=== PATIENT | female | born 1985 | race Caucasian/White ===

== ENCOUNTER 2020-01-28 18:07 | Emergency (ER) | payer OTHER, SELFPAY ==
--- NOTE | ~2020-01-28 | XR_ITS ---
EXAMINATION: XR foot LT 2V DATE: 01/28/2020 18:40 INDICATION: Left foot injury. TECHNIQUE: 2 views of left foot were obtained. COMPARISON: None. FINDINGS: Bone alignment is normal. No fracture. There is mild osteoarthritis of first metatarsophala ngeal joint and some of the interphalangeal joints and midfoot joints. There are enthesophytes at the posterior and plantar aspects of calcaneal tuberosity. IMPRESSION: 1. Mild polyarticular osteoarthritis. Reviewed, dictated and finalized at location A. NG SEWER
[2020-01-28 18:10] VITALS: BP 141/81; PULSE 92; RESP 14; TEMP 36.6; O2SAT 98
--- NOTE | 2020-01-28 18:45 | ED.LOWEXIN ---
HPI - Extremity Injury (Lower) General Chief Complaint: Extremity Injury, Lower Stated Complaint: foot pain Source: patient Mode of arrival: ambulatory Limitations: no limitations History of Present Illness HPI Narrative: This is a 34-year-old female presents after she dropped safe on her left foot mainly on the left large toe causing some swelling and bruising with some decreased range of motion secondary to swelling, happen a couple days ago when she was trying to put up [place] ornaments and decorations. Currently there is some mild tingling with no numbness has good range of motion although limited secondary to swelling. Did try [id number] ibuprofen with ice as well with some moderate relief. complaint: foot injury Injury: Left: foot Type of Injury: blunt Place: home Severity: mild Severity scale (1-10): 4 Relieving factors: NSAID Exacerbating factors: weight bearing and movement Context: direct blow Associated symptoms: swelling and tingling Related Data Home Medications Medication Instructions Recorded Confirmed levothyroxine 112 mcg PO DAILY 01/28/20 01/28/20 loratadine [Claritin] 10 mg PO DAILY 01/28/20 01/28/20 omeprazole 20 mg PO DAILY 01/28/20 01/28/20 trazodone 50 mg PO HS 01/28/20 01/28/20 Allergies Allergy/AdvReac Type Severity Reaction Status Date / Time codeine AdvReac Nausea and Verified 01/28/20 18:23 Vomiting Review of Systems Review of Systems: All systems reviewed & are unremarkable except as noted in HPI and below PMFSH Past Medical History Medical History Patient denies medical problems Exam Narrative: Exam Narrative: patient declined any pain medication, reassessment patient is currently having pain about a 3 or 4/10 and reviewed x-ray with patient and mention there were no acute fractures. Const: General: cooperative, healthy appearing and comfortable HENMT: Head: normal to inspection Eyes: General: appearance normal, both eyes and all related structures Eyelids: eyelids normal Conjunctivae: conjunctivae normal Sclera: sclerae normal Neck: Neck: normal visual inspection, full ROM and no lymphadenopathy Chest: Chest palpation & inspection: normal inspection of the chest and normal palpation of entire chest wall Resp: Effort & Inspection: normal respiratory effort and able to speak in complete sentences Cardio: Jugular venous distension: no JVD Palpation: normal PMI Rate: regular rate Rhythm: regular rhythm Heart sounds: S1 normal heart sound present and S2 normal heart sound present GI: Inspection: normal to inspection Skin: Other: Bruising anterior left large toe Course Vital Signs Vital signs: Vital Signs Temperature 36.6 C 01/28/20 18:10 Pulse Rate 92 01/28/20 18:10 Respiratory Rate 14 01/28/20 18:10 Blood Pressure 141/81 H 01/28/20 18:10 Pulse Oximetry 98 01/28/20 18:10 Temperature 36.6 C 01/28/20 18:10 Pulse Rate 92 01/28/20 18:10 Respiratory Rate 14 01/28/20 18:10 Blood Pressure 141/81 H 01/28/20 18:10 Pulse Oximetry 98 01/28/20 18:10 Critical Care Time Critical Care Time Critical Care Time: No Discharge Plan Discharge Clinical Impression: Foot sprain Qualifiers: Encounter type: initial encounter Laterality: left Qualified Code(s): S93.602A - Unspecified sprain of left foot, initial encounter Patient Disposition: Home, Self-Care Condition: Stable Instructions: Antibiotic Form, Foot Sprain (ED) Additional Instructions: can use [id number] ibuprofen, and ice to affected area, if symptoms persist or worsen should follow-up with primary care physician for further evaluation and treatment. Prescriptions: No Action trazodone 50 mg Tablet 50 mg PO HS RF: 0 loratadine [Claritin] 10 mg Tablet 10 mg PO DAILY RF: 0 levothyroxine 112 mcg Tablet 112 mcg PO DAILY RF: 0 omeprazole 20 mg Tablet,Delayed Release (D
[2020-01-28 18:50] VITALS: RESP 16; O2SAT 99
== END 2020-01-28 18:51 | disposition home or self-care (01) ==
PROVIDERS: Emergency Provider Emergency Medicine; PCP Internal Medicine
DX: S93.602A Unspecified sprain of left foot, initial encounter (principal); W22.8XXA Striking against or struck by other objects, initial encounter
CPT/HCPCS: 73620; 99282; 99283

== ENCOUNTER 2021-06-08 07:37 | Outpatient (CLI) | payer OTHER, SELFPAY ==
[2021-06-08 19:00] LABS: Hematocrit 41.3 % (37.0-47.0); Hemoglobin 13.2 g/dL (12.0-15.0); Mean Corpuscular Hemoglobin 30.1 pg (26-34); Mean Corpuscular Volume 94.3 fl (80-100); Mean Platelet Volume 10.4 fl (7.4-10.4); Platelet Count Result 275 k/mm3 (150-375); Red Blood Count 4.38 M/mm3 (4.2-5.4); Red Cell Distribution Width 12.3 % (11.5-14.5); White Blood Count 7.5 K/mm3 (4.5-10.0)
[2021-06-08 19:08] LABS: Alanine Aminotransferase 21 U/L (4-35); Albumin Level 4.5 g/dL (3.5-5.1); Alkaline Phosphatase 57 U/L (38-126); Anion Gap 8 mmol/L (8-16); Aspartate Amino Transferase 25 U/L (14-36); Bilirubin,Total 0.2 mg/dL (0.2-1.3); Blood Urea Nitrogen 16 mg/dL (7-17); Calcium 9.3 mg/dL (8.4-10.2); Carbon Dioxide 23 mmol/L (22-30); Chloride 105 mmol/L (98-107); Cholesterol 149 mg/dL (0-200); Estimated Glomerular Filt Rate > 60; Glucose 104 mg/dL (65-110); HDL Direct 57 mg/dL; Potassium 4.3 mmol/L (3.4-5.0); Sodium 136 mmol/L (137-145); Triglycerides 111 mg/dL (<150)
[2021-06-08 19:19] LABS: LDL Cholesterol Direct 67 mg/dL
[2021-06-08 21:50] LABS: Free T4 Free Thyroxine Reflex 1.28 ng/dL (0.78-2.19)
== END 2021-06-08 07:38 | disposition home or self-care (01) ==
LOC: ANHBWCLAB 07:38
PROVIDERS: PCP Family Medicine; Visit Provider Family Medicine
DX: Z00.00 Encounter for general adult medical examination without abnormal findings (principal)
CPT/HCPCS: 36415; 80053; 80061; 84439; 84443; 84480; 85027

== ENCOUNTER 2021-07-16 11:09 | Outpatient (CLI) | payer OTHER, SELFPAY | END 2021-07-16 11:10 | disposition home or self-care (01) | PROVIDERS: PCP Family Medicine; Visit Provider Family Medicine | DX: E03.9 Hypothyroidism, unspecified (principal) | CPT/HCPCS: 36415; 84443 ==

== ENCOUNTER 2022-03-29 08:54 | Outpatient (CLI) | payer OTHER, SELFPAY ==
[2022-03-29 22:25] LABS: Free T4 Free Thyroxine Reflex 1.56 ng/dL (0.78-2.19)
[2022-03-29 23:53] LABS: Total Triiodothyronine (T3) 1.85 NG/ML (0.97-1.69)
== END 2022-03-29 08:55 | disposition home or self-care (01) ==
LOC: ANHBWCLAB 08:55
PROVIDERS: PCP Family Medicine; Visit Provider Family Medicine
DX: E03.9 Hypothyroidism, unspecified (principal); G43.909 Migraine, unspecified, not intractable, without status migrainosus; G44.209 Tension-type headache, unspecified, not intractable; J30.9 Allergic rhinitis, unspecified
CPT/HCPCS: 36415; 84439; 84443; 84480

== ENCOUNTER 2022-06-04 07:35 | Outpatient (CLI) | payer OTHER, SELFPAY ==
[2022-06-04 19:44] LABS: Hemoglobin 12.9 g/dL (12.0-15.0); Mean Corpuscular HGB Conc 31.5 g/dl (32-36); Mean Corpuscular Hemoglobin 30.3 pg (26-34); Mean Corpuscular Volume 96.2 fl (80-100); Mean Platelet Volume 10.2 fl (7.4-10.4); Platelet Count Result 261 k/mm3 (150-375); Red Blood Count 4.26 M/mm3 (4.2-5.4); Red Cell Distribution Width 12.5 % (11.5-14.5); White Blood Count 6.3 K/mm3 (4.5-10.0)
[2022-06-04 21:10] LABS: Alanine Aminotransferase 27 U/L (6-35); Albumin Level 4.3 g/dL (3.5-5.1); Alkaline Phosphatase 56 U/L (38-126); Anion Gap 5 mmol/L (8-16); Aspartate Amino Transferase 65 U/L (14-36); Bilirubin,Total 0.4 mg/dL (0.2-1.3); Blood Urea Nitrogen 15 mg/dL (7-17); Calcium 8.9 mg/dL (8.4-10.2); Carbon Dioxide 28 mmol/L (22-30); Chloride 104 mmol/L (98-107); Cholesterol 154 mg/dL (0-200); Estimated Glomerular Filt Rate > 60; Glucose 101 mg/dL (65-110); HDL Direct 55 mg/dL; Potassium 4.7 mmol/L (3.4-5.0); Sodium 137 mmol/L (137-145); Triglycerides 119 mg/dL (<150)
[2022-06-04 21:21] LABS: LDL Cholesterol Direct 70 mg/dL
== END 2022-06-04 07:36 | disposition home or self-care (01) ==
LOC: ANHBWCLAB 07:36
PROVIDERS: PCP Family Medicine; Visit Provider Family Medicine
DX: E03.9 Hypothyroidism, unspecified (principal); G43.909 Migraine, unspecified, not intractable, without status migrainosus; G44.209 Tension-type headache, unspecified, not intractable; G47.00 Insomnia, unspecified; Z00.00 Encounter for general adult medical examination without abnormal findings; K21.9 Gastro-esophageal reflux disease without esophagitis; T78.40XA Allergy, unspecified, initial encounter
CPT/HCPCS: 36415; 80053; 80061; 84443; 85027

== ENCOUNTER 2023-03-06 15:33 | Outpatient (CLI) | payer OTHER, SELFPAY ==
[2023-03-06 21:57] LABS: Free T4 Free Thyroxine 1.33 ng/mL (0.78-2.19)
[2023-03-09 04:04] LABS: Triiodothyronine T3 Free 2.6 pg/mL (2.3-4.2)
== END 2023-03-06 15:34 | disposition home or self-care (01) ==
LOC: ANHBWCLAB 15:35
PROVIDERS: PCP Nurse Practitioner Adult Health; Visit Provider Nurse Practitioner Adult Health
DX: E03.9 Hypothyroidism, unspecified (principal)
CPT/HCPCS: 36415; 84439; 84443; 84481

== ENCOUNTER 2024-06-03 07:29 | Outpatient (CLI) | payer BC, SELFPAY ==
--- OUTSIDE RECORDS SUMMARY | 2024-06-03 07:32 | XMS_ITS | Clinical Summary ---
Author Organization [facility] Healthcare Address [address] [place] [address] Care Team Providers Care Cash Applications Coordinator Name Role Phone Fanny Renae MD Primary Care Provider Allergies Active Allergy Reactions Criticality Noted Date Comments Codeine Unknown 07/20/2018 Oregano Unknown 03/20/2020 Medications loratadine (CLARITIN) 10 mg tablet 10 mg daily Active omeprazole (PriLOSEC) 20 mg capsuleIndicatio ns:Gastroesophag eal reflux disease without esophagitis Take 1 capsule (20 mg total) by mouth 2 (two) times a day 180 capsule 1 03/20/2020 Active traZODone (DESYREL) 50 mg tabletIndication s:Psychophysiolo gical insomnia TAKE ONE TABLET BY MOUTH AT BEDTIME 90 tablet 2 05/03/2021 Active levothyroxine (SYNTHROID) 125 mcg tablet TAKE ONE TABLET BY MOUTH ONCE DAILY 90 tablet 1 07/18/2021 Active aspirin 81 MG oral suspension 08/01/2020 Act grecia Active Problems Problem Noted Date Diagnosed Date Psychophysiological insomnia 01/16/2018 Acquired hypothyroidism 01/16/2018 Allergic rhinitis 01/16/2018 Obesity (BMI 30-39.9) 01/16/2018 Chronic fatigue 06/26/2016 Immunizations Immunization Administration Dates Next Due Influenza, Quadrivalent, Split, Intramuscular Influenza, Trivalent, IM (MDV) 12/01/2017 Influenza, Trivalent, Preservative Free, Intramu scular 01/31/2016 Influenza, Unspecified 12/06/2019,12/10/2018 Tdap 12/01/2013,12/05/2012 Medical History Medical History Date Comments Headache PCOS (polycystic ovarian syndrome) Thyroid disease Family History Medical History Relation Name Comments Hyperlipidemia Father Hypertension Father Relation Name Status Comments Brother Alive Father Alive Mother Alive Sister 1 Alive Sister 2 Alive Social History Tobacco Use Types Packs/Day Years Used Date Smoking Tobacco: Never Smokeless Tobacco: Never Alcohol Use Standard Drinks/Week Comments Not Currently 0 (1 standard drink = 0.6 oz pur e alcohol) PHQ-2 Answer Date Recorded PHQ-2 Total Score (If total score is 3 or more points, staff should administer the PHQ-9) 0 03/20/2020 Personal Safety Answer Date Recorded Getting School Help Needed Not on file 05/17 Comments Unknown Sex and Gender Information Value Date Recorded Sex Assigned at Not on file Legal Sex Female 3:48 PM FACILITY [employer]NAGER [employer]ISTOLOGY Gender Identity Female 03/15/2020 12:52 PM FACILITY MANAGER HISTOLOGY Sexual Orientation Straight 03/15/2020 12 :52 PM FACILITY MANAGER HISTOLOGY Obstetrics History Last Filed Vital Signs Vital Sign Reading Time Taken Comments Blood Pressure 108/76 09/18/2021 1:37 PM CDT Pulse 110 09/18/2021 1:37 PM CDT Temperature 37.9 C (100.3 F) 09/18/2021 1:02 PM CDT Respiratory Rate 18 09/18/2021 1:02 PM CDT Oxygen Saturation 97% 09/18/2021 1:37 PM CDT Inhaled Oxygen Concentration - - Weight 86.5 kg (190 lb 9.6 oz) 09/18/2021 1:02 P M CDT Height 154.9 cm (5' 1 ) 09/18/2021 1:02 PM CDT Body Mass Index 36.01 09/18/2021 1:02 PM CDT Plan of Treatment Health Maintenance Due Date Last Done Comments Breast Cancer Screening-Mammogram 1983 Hepatitis C Screening 1983 Hepatitis B Screening 10/21/2001 Cervical Cancer Screening 06/02/2019 06/01/2018 Depression Screening 03/20/2021 03/20/2020, 03/17/19 20 Regular Well Visit/Exam 18-64 03/20/2021 03/20/2020, 03/17/2019 DTaP/Tdap/Td Vaccine (3 - Td or Tdap) 12/02/2023 12/01/2013, 12/05/2012 Influenza Vaccine (Season Ended) 2024 12/06/2019, 12/10/2018, 12/10/2018, Additional history exists HPV Vaccines Aged Out No longer eligi ble based on patient's age to complete this topic Pneumococcal vaccine <65 Aged Out No longer eligible based on patient's age to complete this topic Varicella Vaccines Discontinued Procedures Procedure Name Priority Date/Time Associated Diagnosis Comments PAP SMEAR WITH HPV Routine 06/01/2018 from Last 3 Months or Most Recently Relevant to Health Maintenance Results * PAP SMEAR WITH HPV (06/01/2018) HM Pap smear Normal us Historical Provider HEALTH MAINTENANCE Final Result from Last 3 Months or Most Recently Relevant to Health Maintenance Insurance [facility] Address: [address] [address] Care Teams Cash Applications Coordinator Relationship Specialty Start Date End Date Fanny Renae MD PCP - General Internal Medicine 03/08/19
--- OUTSIDE RECORDS SUMMARY | 2024-06-03 07:32 | XMS_ITS | Data Portability ---
Author Organization [facility] [employer] [facility] Address [address] [place] [address] Assessment Encounter Date Assessment Date Assessment LastModified by Organization Details LastModified Time 04/22/2022 04/22/2022 36 y.o. here for annual exam. - Pap / HPV cotesting done today , discussed natural course of HPV infection, ASCCP guidelines. Plan to repeat cotesting in 5 years - Contraception: declined, partner s/p vasectomy. - Routine labs done with PCP - Mammo at age 38, no increased risk - Depression screen NEG - BMI counseling, diet and exercise reviewed - RTO for annual or PRN [email or web address] Not available 04/23/2022 00:11:03 05/28/2022 05/28/2022 results reviewed. Based on ASCCP guidelines, plan repeat cotesting in 1 and 2 years. If both normal, could return to routine screening. Need for surveillance and adherence to routine screening explained. Patient voiced understanding. Return 04/2023 for cotesting. [email or web address] Not available 08/08/2022 16:58:26 Plan of Treatment Reminders Order Date Submit Date Provider Last Modified By Organization Details Last Modified Time Details Appointments None jennifer bradshaw Lab biopsy, tissue 2022 023 [id number] [facility], [address] [place], [address], 3 17:41:01 biopsy, tissue 2022 023 FÉLIX [facility], [address] [place], [address], 3 16:53:25 biopsy, tissue 2022 023 [email or web address] [facility], [address] [place], [address], 3 17:41:01 pregnan cy test, urine 2022 023 [email or web address] [facility], [address] [place], [address], 3 18:06:02 biopsy, tissue 2022 023 [id number] [facility], [address] [place], [address], 3 17:41:01 biopsy, tissue 2022 023 [email or web address] [facility], [address] [place], [address], 3 17:41:01 pap, LB 2022 023 [employer] [facility], [address] [place], [address], 3 12:48:49 HPV E6+E7 mRNA, qualita tive PCR, cervix 2022 023 [facility], [address] [place] [address], [address], 3 15:30:09 Referral None recorde d. Procedures colposc opy with biopsy and endocer vical curetta ge (PROC) 2022 023 Not available 3 13:03:04 biopsy, endomet rium (PROC) 2022 023 [email or web address] Not available 3 12:13:29 Surgeries None recorde d. Imaging None recorde d. Medication Orders None recorde d. Patient TargetsNo targets recorded. Patient Instructions Encounter Date Encounter Id Patient Instructions Last Modified By Organization Details Last Modified Time 04/22/2022 [id number] Patient Health Questionnaire-9* [email or web address] Not available 04/22/2022 12:34:31 body mass index: care instructions [email or web address] Not available 04/23/2022 00:11:04 learning about depression screening [email or web address] Not available 04/23/2022 00:11:04 A healthy lifestyle: care instructions [email or web address] Not available 04/23/2022 00:11:04 Reason for Referral None Reported. Results Created Date Observation Date Name Description Value Unit Range Abnormal Flag Note LastModifiedBy Organization Detail LastModifiedTime 05/17/1905/16/2022 TISSU E PATHO LOGY clinical information Lesio n Not Available [address] [place], [address], 05/16/2022 16:53:25 05/17/19 23 05/16/2022 TISSU E PATHO LOGY pathologist Jaime Morris M.D., Board Certi fied in Anato brijesh Patho logy and Clini lola Patho logy. Phone (elec troni c signa ture) Not Available [address] [place], [address], 05/16/2022 16:53:25 05/17/19 23 05/16/2022 TISSU E PATHO LOGY A source Cervi x, 3 o'alek ck, biops y Not Available [facility] [address] [address] [place], [address], 05/16/2022 16:53:25 05/17/19 23 05/16/2022 TISSU E PATHO LOGY A gross description Speci men is recei caity in forma alex, label ed with multi ple patie nt ident ifier s and consi sts of one fragm ent of tissu e measu ring 0.7 x 0.4 x 0.2 cm, irreg ular in shape and yello w-whi te in color . The speci men is entir jovan submi tted in one casse tte. The speci men site is taken from the conta iner. Gross exam( s) perfo rmed at: [facility] [place] [address] [facility] [address], [place] [address] Labor atory Direc tor: KEYANA Diggs MD Not Available [facility] [address] [address] [place], [address], 05/16/2022 16:53:25 05/17/19 23 05/16/2022 TISSU E PATHO LOGY A diagnosis Acute and chron ic infla mmati on with tubal metap lasia , see comme nt. Trans forma tion zone compo nent prese nt. No dyspl jcarlos or malig pushpa . Not Available [facility] [address] [address] [place], [address], 05/16/2022 16:53:25 05/17/19 23 05/16/2022 TISSU E PATHO LOGY A comment The endoc ervic al epith elial cells that show the tubal metap lasia in this speci men may accou nt for the atypi lola gland ular cells seen in the recen t Pap smear . Not Available [facility] [address] [address], [place], [address], 05/16/2022 16:53:25 05/17/19 23 05/16/2022 TISSU E PATHO LOGY B source Cervi x, 7 o'alek ck, biops y Not Available [facility] [address] [address] , [place], [address], 05/16/2022 16:53:25 05/17/19 23 05/16/2022 TISSU E PATHO LOGY B gross description Speci men is recei caity in forma alex, label ed with multi ple patie nt ident ifier s and consi sts of one fragm ent of tissu e measu ring 0.7 x 0.2 x 0.2 cm, irreg ular in shape and yello w-whi te in color . The speci men is entir jovan submi tted in one casse tte. [facility]. 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 Trans forma tion zone compo nent prese nt. Tubal metap lasia also noted , see comme nt. Not Available [address] [address] [place], [address], 05/16/2022 16:53:25 05/17/19 23 05/16/2022 TISSU E PATHO LOGY B comment The endoc ervic al epith elial cells that show the tubal metap lasia in this speci men may accou nt for the atypi lola gland ular cells seen in the recen t Pap smear . Not Available [facility] [address] [address] [place], [address], 05/16/2022 16:53:25 05/17/19 23 05/16/2022 TISSU E PATHO LOGY C source Cervi x, 11 o'alek ck, biops y Not Available [facility] [address] [address] [place], [address], 05/16/2022 16:53:25 05/17/19 23 05/16/2022 TISSU E PATHO LOGY C gross description Speci men is recei caity in forma alex, label ed with multi ple patie nt ident ifier s and consi sts of one fragm ent of tissu e measu ring 0.4 x 0.2 x 0.2 cm, irreg ular in shape and yello w-whi te in color . The speci men is entir jovan submi tted in one casse tte. The speci men site is taken from the [facility]. 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 Trans forma tion zone compo nent prese nt. Not Available [facility] [address] [address] [place], [address], 05/16/2022 16:53:25 05/17/19 23 05/16/2022 TISSU E PATHO LOGY D source Endoc ervix , curet tage Not Available [facility] [address] [address] [place], [address], 05/16/2022 16:53:25 05/17/19 23 05/16/2022 TISSU E PATHO LOGY D gross description Speci men is recei caity in forma alex, label ed with multi ple patie nt ident ifier s and consi sts of multi ple fragm ents of mucoi d mater ial aggre gatin g to 2.5 x 0.7 x 0.1 cm, irreg ular in shape and weston-b rown in color . The speci men is entir jovan submi tted in one casse tte. [facility]i [facility]. Not Available [facility] [address] [address] [place], [address], 05/16/2022 16:53:25 05/17/19 23 05/16/2022 TISSU E PATHO LOGY D diagnosis Benig n endoc ervic al tissu e showi ng acute and chron ic infla mmati on and tubal metap lasia , see comme nt. No dyspl jcarlos or malig pushpa . Not Available [facility] [address] [address] [place], [address], 05/16/2022 16:53:25 05/17/19 23 05/16/2022 TISSU E PATHO LOGY D comment The endoc ervic al epith elial cells that show the tubal metap lasia in this speci men may accou nt for the atypi lola gland ular cells seen in the recen t Pap smear . Not Available [facility] [address] [address] , [place], [address], 05/16/2022 16:53:25 05/17/19 23 05/16/2022 TISSU E PATHO LOGY E source Endom etriu m, biops y Not Available [facility] [address] [address] [facility] [place], [address], 05/16/2022 16:53:25 05/17/19 23 05/16/2022 TISSU E PATHO LOGY E gross description Speci men is recei caity in forma alex, label ed with multi ple patie nt ident ifier s and consi sts of multi ple fragm ents of soft tissu e aggre gatin g to 2.5 x 2.0 x 0.5 cm, irreg ular in shape and weston-b rown in color . The speci men is entir jovan submi tted in one casse tte. The [facility]i [facility]. Not Available [facility] [address] [address] , [place], [address], 05/16/2022 16:53:25 05/17/19 23 05/16/2022 TISSU E PATHO LOGY E diagnosis Benig n mid/l ate secre tory endom etriu m showi ng tubal metap lasia , see comme nt. No hyper plasi a or malig pushpa . Not Available [facility] [address] [address] [place], [address], 05/16/2022 16:53:25 05/17/19 23 05/16/2022 TISSU E PATHO LOGY E comment The endom etria l epith elial cells that show the tubal metap lasia in this speci men may accou nt for the atypi lola gland ular cells seen in the recen t Pap smear . NO COLLE CTION DATE RECEI CAITY. WE HAVE USED THE DATE THE SPECI MEN WAS RECEI CAITY BY THIS LABOR ATORY THE COLLE CTION DATE. IF THIS IS INCOR RECT, PLEAS E CONTA CT CLIEN T SERVI ZAK. PHONE NUMBE R: [phone] Not Available [facility] [address] [address] [place], [address], 05/16/2022 16:53:25 04/22/19 23 04/23/2022 HPV HIGH RISK HPV high risk Negati ve negati ve normal The HPV High Risk assay is inten ded for use as co-te sting with cytol ogy and not as a subst itute for regul ar cervi lola cytol ogy scree tammy. This assay is not inten ded for use as a scree tammy devic e for women under age 30 with monik l cervi lola cytol ogy. Not Available [address], [address], 04/23/2022 15:30:09 04/22/19 23 04/26/2022 THINP REP TIS PAP clinical information: normal None given Not Available [facility] [address] [address] [place], [address], 04/26/2022 12:48:49 04/22/19 23 04/26/2022 THINP REP TIS PAP LMP: normal NONE GIVEN Not Available [facility] [address] [address] [place], [address], 04/26/2022 12:48:49 04/22/19 23 04/26/2022 THINP REP TIS PAP prev. Pap: normal NONE GIVEN Not Available [facility] [address] [address] [place], [address], 04/26/2022 12:48:49 04/22/1904/26/2022 THINP REP TIS PAP prev. BX: normal NONE GIVEN Not Available [address], [address], 04/26/2022 12:48:49 04/22/19 23 04/26/2022 THINP REP TIS PAP source: normal Cervi x Not Available [address], [address], 04/26/2022 12:48:49 04/22/19 23 04/26/2022 THINP REP TIS PAP statement of adequacy: normal Satis facto ry for evalu ation . Endoc ervic al/tr ansfo rmati on zone compo nent prese nt. Age and/o r menst rual statu s not provi ded Not Available [address], [address], 04/26/2022 12:48:49 04/22/19 23 04/26/2022 THINP REP TIS PAP general categorizati on: abnormal EPITH ELIAL CELL ABNOR MALIT Y Not Available [address], [address], 04/26/2022 12:48:49 04/22/19 23 04/26/2022 THINP REP TIS PAP interpretati on/result: abnormal Atypi lola Gland ular Cells Not Available [address], [address], 04/26/2022 12:48:49 04/22/19 23 04/26/2022 THINP REP TIS PAP comment: normal This case could not be evalu ated with compu ter dawit jose maria techn ology . The slide was aleksandr pineda suleiman accor ding to zeny maldonado . Not Available [address] [place], [address], 04/26/2022 12:48:49 04/22/19 23 04/26/2022 THINP REP TIS PAP cytotechnolo gist: normal DDS, CT( CP) CT scree tammy locat ion: [address] [address] [place] [address] Not Available [facility] [address] [address] [place], [address], 04/26/2022 12:48:49 04/22/19 23 04/26/2022 THINP REP TIS PAP pathologist: normal Monik pagan M.D., Board Certi fied in Anato brijesh Patho logy and Cytop athol ogy. Phone : [phone] (elec troni c signa ture) Not Available [facility] [address] [address], [place], [address], 04/26/2022 12:48:49 04/22/19 23 04/26/2022 THINP REP TIS PAP comment EXPLA NATOR Y NOTE: The Pap is a scree tammy test for cervi lola cance r. It is not a diagn ostic test and is subje ct to false negat grecia and false posit grecia resul ts. It is most relia ble when a satis facto ry sampl e, regul justin obtai suleiman, is submi tted with relev ant clini lola findi ngs and histo ry, and when the Pap resul t is evalu ated along with histo reza and curre nt clini lola infor matio n. Not Available [facility] [address] [address], [place], [address], 04/26/2022 12:48:49 05/11/19 23 05/10/2022 pregn dorota test, urine HCG negati ve Not Available [facility] [address] [place], [address], 05/10/2022 16:21:01 Result Notes None recorded. Problems Name Problem SNOMED Code Status Onset Date Resolution Date Notes Provider Name and Address Organization Details Recorded Time Sampling of vagina for Papanicola ou smear Active 2017 Encounter for gynecologic al examination (general) (routine) without abnormal findings; Progress: Stable Added By: Macrina Schmitt Add to Current Problems: YES ProblemStat us: Current Not Available [facility] 2 21:56:05 Screening for malignant neoplasm of cervix Active 2017 Encounter for screening for malignant neoplasm of cervix; Progress: Stable Added By: Macrina Schmitt Add to Current Problems: YES ProblemStat us: Current Not Available [facility] 2 21:56:05 Problem Notes None recorded. Procedures Surgical History Date Name Laterality Status Provider Name and Address Organization Details Recorded Time 3 Colposcopy - Cervix completed NIGHAT NUNO MD [address] [place] [address], [address], [facility] [place] IV 05/10/2022 18:07:02 3 Endometrial Biopsy completed NIGHAT NUNO MD [address] [place] [address], [address], [facility] Tict[place] IV 05/10/2022 18:08:27 3 Date of [facility]/10/[facility]22 15:55:30 Imaging Results None recorded. Procedure Notes None recorded. Medical Equipment None Reported. Allergies Allergen ID Allergen Name Allergen Category Reaction Reaction Severity Criticality Documentation Date Start Date Code Code System Note Provider Name and Address Organization Details Recorded Time 297550 codeine phosphate medicatio n Not available Not available Not available 12/22/20202017 2672 RxNorm Sever ity: Moder ate; Not Available Not Available Not Available 984907 house dust allergeni c extract environme nt,medica tion Not available Not available Not available 04/22/2022 01952 9 RxNorm Not Available Not Available Not Available 132959 cat dander environme nt Not available Not available Not available 04/22/2022 80384 UNK Not Available Not Available Not Available 968200 mold extract environme nt Not available Not available Not available 04/22/2022 89173 8 RxNorm Not Available Not Available Not Available 704433 cigarette smoke environme nt Not available Not available Not available 04/22/2022 87996 UNK Not Available Not Available Not Available Medications Name Sig Start Date Stop Date Status Note LastModified by Organization Details LastModified Time amoxicill in 500 mg capsule 04/22 completed Not Available Not Available Not Available trazodone 50 mg tablet Take 1 tablet PO at bedtime prn insomnia 2017 active Trazodon e HCl 50mg Tablet RxNorm: 201280 Allow Substitu tion: True Refill Denied: No Refill DateOccu rred: 02/05/20 18 Not Available Not Available Not Available amitripty line 75 mg tablet Take 1 tablet(s ) by mouth at bedtime 02/12 completed Amitript yline HCl 25mg Tablet RxNorm: 547166 Allow Substitu tion: True Refill Denied: No Refill DateOccu rred: 02/05/20 18 Not Available Not Available Not Available trazodone 100 mg tablet Take 1 tablet PO at bedtime prn insomnia 2017 active Trazodon e HCl 50mg Tablet RxNorm: 613686 Allow Substitu tion: True Refill Denied: No Refill DateOccu rred: 02/05/20 18 Not Available Not Available Not Available trazodone 150 mg tablet Take 1 tablet PO at bedtime prn insomnia 04/22 completed Trazodon e HCl 50mg Tablet RxNorm: 861011 Allow Substitu tion: True Refill Denied: No Refill DateOccu rred: 02/05/20 18 Not Available Not Available Not Available levothyro xine 125 mcg tablet active Not Available Not Available Not Available amitripty line 100 mg tablet Take 1 tablet(s ) by mouth at bedtime 02/12 completed Amitript yline HCl 25mg Tablet RxNorm: 415082 Allow Substitu tion: True Refill Denied: No Refill DateOccu rred: 02/05/20 18 Not Available Not Available Not Available aspirin 81 mg active Not Available Not Avail able Not Available omeprazol e Take 1 capsule( s) by mouth daily 04/22 completed Omeprazo le 40mg Capsules , Extended Release RxNorm: 120479 Allow Substitu tion: True Refill Denied: No Refill DateOccu rred: 02/13/20 18 Not Available Not Available Not Available Imitrex PRN 02/12 completed Imitrex 100mg Tablet RxNorm: 979956 Allow Substitu tion: True Refill Denied: No Refill DateOccu rred: 02/05/20 18 Not Available Not Available Not Available Claritin Take 1 tablet(s ) by mouth daily 2017 active Claritin 10mg Tablet RxNorm: 796453 Allow Substitu tion: True Refill Denied: No Refill DateOccu rred: 02/05/20 18 Not Available Not Available Not Available Synthroid 04/22 completed Synthroi d 0.125mg Tablet RxNorm: 688442 Allow Substitu tion: True Refill Denied: No Refill DateOccu rred: 02/05/20 18 Edited by: Kaelyn Redding ) on 02/13/20 18 Stopped by: raymond amato(Kaelyn Bartlett ) on Not Available Not Available Not Available Vitamin D3 1 po qd 04/22 completed Vitamin D3 5,000IU Capsules RxNorm: 918470 Allow Substitu tion: True Refill Denied: No Refill DateOccu rred: 02/05/20 18 Not Available Not Available Not Available Vitals Date Recorded Body weight Body mass index (BMI) Body height Systolic blood pressure Diastolic blood pressure Provider Name and Address Organization Details Last Updated DateTime 04/22/2022 89687.98 g 37.2 kg/m2 154.94 cm 110 mm[Hg] 76 mm[Hg] Jennifer Giovanna [facility] 3 11:52:47 Date Recorded Body height Body mass index (BMI) Body weight Body temperature Provider Name and Address Organization Details Last Updated DateTime 05/10/2022 154.94 cm 35.9 kg/m2 82778.83 g 97.9 [degF] Michelle Randallt [facility] 05/10/2022 16:25:09 Date Recorded Body height Body mass index (BMI) Body weight Body temperature Systolic blood pressure Diastolic blood pressure Provider Name and Address Organization Details Last Updated DateTime 3 154.94 cm 35.9 kg/m2 86952.5 5 g 98.4 [degF] 124 mm[Hg] 78 mm[Hg] Michelle Solitario [facility] 3 15:13:34 Social History Question Answer Notes LastModified by Organizat ion Details LastModified Time Tobacco Smoking Status Never Smoker Jennifer durbin, [facility] 04/22/2022 11:45:00 What Is Your Level Of Alcohol Consumption? None Information not available 04/22/2022 Are You Blind Or Do You Have Difficulty Seeing? No Information not available 05/10/2022 Are You Deaf Or Do You Have Serious Difficulty Hearing? No Information not available 05/10/2022 What Type Of Diet Are You Following? CARBOHYDRATE Information not available 04/22/2022 Do You Or Have You Ever Used E-cigarettes Or Vape? Never Used Electronic Cigarettes Information not available 04/22/2022 How Many Children Do You Have? 2 Information not available 04/22/2022 What Is Your Relationship Status? Information not available 04/22/2022 Are You Sexually Active? Yes Information not available 04/22/2022 Do You Use Any Illicit Or Recreational Drugs? No Information not available 05/10/2022 Do You Or Have You Ever Used Any Other Forms Of Tobacco Or Nicotine? No Information not available 05/10/2022 Sex: Unknown Functional Status Question Answer Note LastModified by Organization D etails LastModified Time What is your exercise level? Moderate Information not available 04/22/2022 Mental Status None recorded. Family History Relationship Description Onset Age of this Age Resolved Age Notes LastModified by Organization Details LastModified Time Mother Hypertensive disorder Not available 2022 11:44:42 Father Hypercholest erolemia Not available 2022 11:44:42 Father Malignant neoplastic disease Not available 2022 11:44:42 Father Hypertensive disorder Not available 2022 11:44:42 Medical History Condition Response Headaches/migraines Y Hypothyroidism Y Gynecological History Statement/Question Response Flow Moderate Date of LMP 05/13/2022 Frequency of Cycle (Q days) 28 Date of Last Pap Smear 04/22/2022 Duration of Flow (days) 6 Current Control Method Partner Vas ectomy Age at Menarche 9 Obstetrics History GPAL:G 2 P 2 0 0 2 Type Value Full Term 2 Living 2 Total 2 Past Encounters Encounter ID Performer Location Encounter Start Date Encounter Closed Date Diagnosis/Indication Diagnosis SNOMED-CT Code Diagnosis ICD10 Code Diagnosis Note [id number] NIGHAT DUNHAM MD [address] [address] 04/22/2022 11:32:15 04/23/2022 13:18:54 Gynecologic examination 63879338 Z01.419 Screening for malignant neoplasm of cervix 578391054 Z12.4 Depression screening 171 239205 Z13.31 [id number] NIGHAT DUNHAM MD [address] [address] 05/10/2022 16:17:17 05/13/2022 11:56:38 Low grade squamous intraepithelial lesion on cervical Papanicolaou smear 4742943361 9105 R87.612 Atypical g landular cells on cervical Papanicolaou smear 910314847 R87.619 Abnormal f inding on evaluation procedure 102243425 R87.455 [id number] NIGHAT DUNHAM MD [facility] [address] [place] [phone] 05/28/2022 14:40:53 05/29/2022 09:20:54 Atypical glandular cells on cervical Papanicolaou smear 432300835 R87.619 Cervical intraepithelial neoplasia grade 1 980287052 N87.0 Health Concerns Section Related Observation LastModified by Organization Detai ls LastModified Time None Recorded Concern Status LastModified by Organization Details LastModified Time None Recorded Advance Directives Directive None Recorded Payers Encounter Date Sequence Insurance Name Policy Number Policy Roberts Covered Member ID Roberts Member ID Guarantor Name 04/22/2022 1 [facility] Afshin Almazan [id number] Alexsandra Almazan 05/10/2022 1 [facility] Afshin Almazan [id number] Alexsandra Almazan 05/28/2022 1 [facility] Afshin Almazan [id number] Alexsandra Almazan Notes Date Note Type Note Provider Name and Address Organization Details Recorded Time 04/22/2022 text/html Annual GYNReport ed bypatient.Menstrual cycle:Normal menses Urinary symptoms:No hematuria; No incontinence Vulva:No genital lesion Vagina:Normal vaginal discharge Breast:No breast pain; No breast lump; No nipple discharge Sexual complaints:No sexual complaints; No pain during intercourse; Normal libido Menopausal Symptoms:No menopausal symptoms; Normal vaginal lubrication Psychological symptoms:No depression; No anxiety; No PMDD Tha is a 36 yr old who is being seen for an annual exam w/ pap 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 NIGHAT NUNO MD [address] [place] [address], [id number], [facility] [place] 04/23/2022 00:11:35 05/10/2022 text/html Patient is here to have a Colpo due to an abnormal pap smear. (LGSIL) NIGHAT NUNO MD [address] [place] [address], [id number], [facility] [place] IV 05/10/2022 18:08:39 05/28/2022 text/html Patient is here for the results of her Colpo she had done on 05/10/2022Results are in her chart Atypical glandular cells on Pap/ HPV negColpo done 05/10/2022: Cx biopsy @ 3o' clock- tubal metaplasia and 7, 11 o clock showed ATTILA 1.ECC and EMB benign. NIGHAT NUNO MD [address] [place] [address], [id number], [facility] [place] 08/08/2022 17:00:19 OBGyn Episode Ob Episode Information Episode Created Date Number of Fetuses Patient Bloodtype Patient rh Status Prepregnancy Weight lbs Domestic Partner Domestic Partner Phone Father Name Band Top Maker Status 04/22/19 23 1 CLOSED Fetus Data First Name Last Name Admitted to NICU Weight (g) Sex Living Outcome Pediatric Complications Fetus ID Race Codes Race Delivery Type F Full Term [id number] Jhonny Calculation Initial Jhonny Date Initial Exam Date Initial Exam Provider Initial Ultrasound Date Last Menstrual Period Date Ultra Sound Weeks Gestation 0 Eighteen To Twenty Week Jhonny Update Ultra Sound Date Fundal Height At Umbil Quickening Date Ultra Sound Latest Weeks Gestation Final Jhonny Confirmed By Final Jhonny Confirmed Date Final Jhonny Date Ultra Sound Latest Days Gestation 0 0 Menstrual History Last Menstrual Date Menses Monthly On Bcp Conception Prior Menses Frequency Hcg Plus Date Menarche Onset Age Delivery Information Delivery Date Delivery Type Labor Anesthesia Weeks Gestation Incision Type Labor Labor Length Hrs Delivered By Post Complications Tubal Sterilization Discharge Date Comments 9 Discharge Information Feeding Method Contraceptive Method Maternal HG B and HCT Levels Ob Episode Information Episode Created Date Number of Fetuses Patient Bloodtype Patient rh Status Prepregnancy Weight lbs Domestic Partner Domestic Partner Phone Father Name Band Top Maker Status 04/22/19 1 CLOSED Fetus Data First Name Last Name Admitted to NICU Weight (g) Sex Living Outcome Pediatric Complications Fetus ID Race Codes Race Delivery Type M Full Term [id number] Jhonny Calculation Initial Jhonny Date Initial Exam Date Initial Exam Provider Initial Ultrasound Date Last Menstrual Period Date Ultra Sound Weeks Gestation 0 Eighteen To Twenty Week Jhonny Update Ultra Sound Date Fundal Height At Umbil Quickening Date Ultra Sound Latest Weeks Gestation Final Jhonny Confirmed By Final Jhonny Confirmed Date Final Jhonny Date Ultra Sound Latest Days Gestation 0 0 Menstrual History Last Menstrual Date Menses Monthly On Bcp Conception Prior Menses Frequency Hcg Plus Date Menarche Onset Age Delivery Information Delivery Date Delivery Type Labor Anesthesia Weeks Gestation Incision Type Labor Labor Length Hrs Delivered By Post Complications Tubal Sterilization Discharge Date Comments 1 Discharge Information Feeding Method Contraceptive Method Maternal HG B and HCT Levels
--- OUTSIDE RECORDS SUMMARY | 2024-06-03 07:32 | XMS_ITS | Referral Summary ---
Author Organization [facility] Healthcare Address [address] [place] [address] Care Team Providers Care Interior Design Program Chair Name Role Phone Fanny Renae MD Primary [...] scular 01/31/2016 Influenza, Unspecified 12/06/2019,12/10/2018 Tdap 12/01/2013,12/05/2012 Social History Tobacco Use Types Packs/Day Years [...] on file Legal Sex Female 3:48 PM SPECIALIST PHYSICIAN Gender Identity Female 03/15/2020 12:52 PM SPECIALIST PHYSICIAN Sexual Orientation Straight 03/15/2020 12 :52 PM SPECIALIST PHYSICIAN Last Filed Vital Signs Vital Sign Reading [...] 09/18/2021 1:02 PM CDT Plan of Treatment Not on file Procedures Procedure Name Priority Date/Time Associated Diagnosis Comments PAP SMEAR WITH HPV Routine 06/01/2018 from Last 3 Months or Most Recently Relevant to Health Maintenance Results * PAP SMEAR WITH HPV (06/01/2018) Pap smear Normal Historical Provider HEALTH MAINTENANCE Final Result from Last 3 Months or Most Recently Relevant to Health Maintenance Insurance [facility] CHOICE PLUS Care Teams Interior Design Program Chair Relationship Specialty Start Date End Date Fanny Renae MD PCP - General Internal Medicine 03/08/19
[2024-06-03 19:13] LABS: Hematocrit 40.9 % (37.0-47.0); Hemoglobin 12.8 g/dL (12.0-15.0); Mean Corpuscular HGB Conc 31.3 g/dl (32-36); Mean Corpuscular Hemoglobin 30.6 pg (26-34); Mean Corpuscular Volume 97.8 fl (80-100); Mean Platelet Volume 10.4 fl (7.4-10.4); Platelet Count Result 269 k/mm3 (150-375); Red Blood Count 4.18 M/mm3 (4.2-5.4); Red Cell Distribution Width 12.6 % (11.5-14.5); White Blood Count 5.4 K/mm3 (4.5-10.0)
[2024-06-03 19:31] LABS: Alanine Aminotransferase 15 U/L (6-35); Albumin Level 4.3 g/dL (3.5-5.1); Alkaline Phosphatase 39 U/L (38-126); Anion Gap 7 mmol/L (4-12); Aspartate Amino Transferase 34 U/L (14-36); Bilirubin,Total 0.3 mg/dL (0.2-1.3); Blood Urea Nitrogen 21 mg/dL (7-17); Carbon Dioxide 26 mmol/L (22-30); Chloride 104 mmol/L (98-107); Cholesterol 142 mg/dL (0-200); Estimated Glomerular Filt Rate > 60; Glucose 84 mg/dL (65-110); HDL Direct 53 mg/dL; Potassium 5.1 mmol/L (3.4-5.0); Sodium 137 mmol/L (137-145); Triglycerides 61 mg/dL (<150)
[2024-06-03 19:48] LABS: LDL Cholesterol Direct 59 mg/dL
== END 2024-06-03 07:30 | disposition home or self-care (01) ==
LOC: ANHBWCLAB 07:30
PROVIDERS: PCP Nurse Practitioner Adult Health; Visit Provider Nurse Practitioner Adult Health
DX: Z13.9 Encounter for screening, unspecified (principal); E03.9 Hypothyroidism, unspecified
CPT/HCPCS: 36415; 80053; 80061; 84443; 85027

== ENCOUNTER 2024-12-07 09:21 | Outpatient (CLI) | payer BC, SELFPAY ==
--- OUTSIDE RECORDS SUMMARY | 2024-12-07 09:52 | XMS_ITS | Clinical Summary ---
Author Organization [facility] Healthcare Address [address] [place] [address] Care Team Providers Care Environmental Officer Name Role Phone Fanny Renae MD Primary [...] on file Legal Sex Female 3:48 PM DATA WAREHOUSE MANAGER Gender Identity Female 03/15/2020 12:52 PM DATA WAREHOUSE MANAGER Sexual Orientation Straight 03/15/2020 12 :52 PM DATA WAREHOUSE MANAGER Obstetrics History Last Filed Vital Signs Vital [...] P M CDT Height 154.9 cm (5' 1) 09/18/2021 1:02 PM CDT Body Mass Index 36.01 09/18/2021 1:02 PM CDT Plan of Treatment Not on file Insurance [facility] CHOICE PLUS Care Teams Environmental Officer Relationship Specialty Start Date End Date Fanny Renae MD PCP - General Internal Medicine 03/08/19
[2024-12-07 19:11] LABS: Thyroid Stimulating Hormone 8.680 uIU/mL (0.465-4.680)
== END 2024-12-07 09:22 | disposition home or self-care (01) ==
PROVIDERS: PCP Nurse Practitioner Adult Health; Visit Provider Nurse Practitioner Adult Health
DX: E03.9 Hypothyroidism, unspecified (principal)
CPT/HCPCS: 36415; 84443

== ENCOUNTER 2025-02-07 13:43 | Outpatient (CLI) | payer BC, SELFPAY ==
[2025-02-07 20:17] LABS: Thyroid Stimulating Hormone 5.080 uIU/mL (0.465-4.680)
== END 2025-02-07 13:44 | disposition home or self-care (01) ==
LOC: ANHBWCLAB 13:44
PROVIDERS: PCP Nurse Practitioner Adult Health; Visit Provider Nurse Practitioner Adult Health
DX: E03.9 Hypothyroidism, unspecified (principal)
CPT/HCPCS: 36415; 84443